=== PATIENT | female | born 1950 | race Caucasian/White ===

== ENCOUNTER 2023-02-17 11:20 | Emergency (ER) | payer BC, MEDICARE ==
[~2023-02-17] VITALS: Ht 165.1 cm; Wt 68.0 kg
[2023-02-17] MEDS ORDERED: LIDOCAINE HCL 1% 20 ML VIAL ONE (12:26)
[2023-02-17] MEDS ORDERED: ONDANSETRON ODT 4MG TAB SL ONE (12:30)
[2023-02-17] MEDS ORDERED: HYDROCODONE/ACETAMINOPHEN 5/325 MG TAB PO ONE (12:30)
[2023-02-17] MEDS ORDERED: LIDOCAINE HCL MPF 1% 5ML VIAL IM SCH (12:30)
[2023-02-17] MEDS ORDERED: LIDOCAINE HCL MPF 1% 5ML VIAL IM ONE (13:00)
[2023-02-17] MEDS ORDERED: ONDANSETRON 4MG INJ ONE (13:06)
[2023-02-17] MEDS ORDERED: MORPHINE 2 MG SYG ONE (13:06)
[2023-02-17] MEDS ORDERED: MORPHINE 2 MG SYG IVP ONE (13:30)
[2023-02-17] MEDS ORDERED: ONDANSETRON 4MG INJ IVP ONE (13:30)
[2023-02-17] MEDS ORDERED: KETOROLAC 30MG VIAL (30MG/ML) ONE (15:31)
[2023-02-17] MEDS ORDERED: KETOROLAC 30MG VIAL (30MG/ML) IVP ONE (16:00)
[2023-02-17 16:06] VITALS: BP 151/70; PULSE 66; RESP 18; O2SAT 96
[2023-02-17] MEDS ORDERED: DIPH,PERTUSS(ACELL),TET VAC/PF 0.5 ML VIAL IM ONE (17:00)
[2023-02-17] MEDS ORDERED: IBUP-2070 PO (17:01)
== END 2023-02-17 17:08 | disposition home or self-care (01) ==
LOC: EDH 11:20
DX: S52.501A Unspecified fracture of the lower end of right radius, initial encounter for closed fracture (principal); S01.112A Laceration without foreign body of left eyelid and periocular area, initial encounter; E78.00 Pure hypercholesterolemia, unspecified; Z90.49 Acquired absence of other specified parts of digestive tract; V19.3XXA Pedal cyclist (driver) (passenger) injured in unspecified nontraffic accident, initial encounter; Y92.89 Other specified places as the place of occurrence of the external cause; Y93.55 Activity, bike riding; Y99.8 Other external cause status
CPT/HCPCS: 99285; 70450; 96374; 96375; 12013; 90715; 73110; 70486; 90471; J2270; J2405; J1885; J3490

== ENCOUNTER → 2024-04-27 | Outpatient (CLI) | payer MEDICARE ==
[~2024-04-27] MED LIST: IBUP-2070 PO; REGADENOSON 0.4 MG/5 ML PF SYG IVP ONE
== END | disposition home or self-care (01) ==
LOC: RAH 10:24
PROVIDERS: ATTEND Internal Medicine Cardiovascular Disease
DX: R94.31 Abnormal electrocardiogram [ECG] [EKG] (principal)
CPT/HCPCS: 93306; J2785

== ENCOUNTER → 2024-04-28 | Outpatient (CLI) | payer MEDICARE ==
[~2024-04-28] MED LIST changes: -REGADENOSON 0.4 MG/5 ML PF SYG IVP ONE
[2024-04-28] MEDS: REGADENOSON 0.4 MG/5 ML PF SYG IVP ONE (16:26)
== END | disposition home or self-care (01) ==
LOC: SHCH 08:34
PROVIDERS: ATTEND Internal Medicine Cardiovascular Disease
DX: R06.00 Dyspnea, unspecified (principal); R07.89 Other chest pain; R10.9 Unspecified abdominal pain
CPT/HCPCS: 78452; 93017; J2785; A9500 ×2